=== PATIENT | male | born 1985 | race Caucasian/White ===

== ENCOUNTER 2017-02-23 18:29 | Emergency (ER) | payer OTHER ==
[~2017-02-23] VITALS: Ht 172.7 cm; Wt 97.5 kg
[2017-02-23] MEDS ORDERED: FISH1000 (18:45)
[2017-02-23] MEDS ORDERED: VITA50003 PO (18:45)
[2017-02-23] MEDS ORDERED: ADVI200T PO (18:46)
[2017-02-23] MEDS ORDERED: IBUP600T26 PO (20:46)
[2017-02-23 21:02] VITALS: BP 178/97
--- NOTE | 2017-02-24 08:17 | REP ---
Left fourth and fifth toes four views: There is no fracture or dislocation. Mineralization and joint spaces are normal. There are no calcifications or foreign bodies. Impression: Negative left fourth and fifth toes . Signed by Gary Thibodeaux MD 02/24/2017 08:09 A
== END 2017-02-23 21:08 | disposition home or self-care (01) ==
LOC: M ED 19:21
DX: S90.122A Contusion of left lesser toe(s) without damage to nail, initial encounter (principal); W22.8XXA Striking against or struck by other objects, initial encounter; Y92.018 Other place in single-family (private) house as the place of occurrence of the external cause; Y93.89 Activity, other specified; Y99.8 Other external cause status